=== PATIENT | female | born 1940 | race Caucasian/White ===

== ENCOUNTER 2017-01-07 15:11 | Inpatient (IN) | payer MEDICARE, OTHER ==
[2017-01-07] MEDS ORDERED: IOPAMIDOL 370 (76%) IV.SOLN 150 ML IV ONE (15:12)
[2017-01-07 16:26] LABS: ABSOLUTE NEUTROPHIL COUNT 1.1 K/mm3 (1.8-7.7); EOS # 0.1 (0.0-0.5); EOS % 0.3 % (0.9-2.9); HEMATOCRIT 26.3 % (37.0-47.0); HEMOGLOBIN 8.2 gm/l (12.0-16.0); IMM NEUT% 0.1 % (0-1); LYMPH % 16.9 % (15-45); MEAN CELL VOLUME 98.9 fl (81.0-99.0); MEAN CORPUSCULAR HEMOGLOBIN 30.8 pg (27.0-31.0); MEAN CORPUSCULAR HGB CONC 31.2 g/dl (33.0-37.0); MEAN PLATELET VOLUME 10.4 fl (7.4-10.4); MONO # 18.3 (0.0-0.8); MONO % 78.1 % (4-12); NEUT % 4.6 % (43-75); PLATELET COUNT 95 K/mm3 (130-400); RED CELL DISTRIBUTION WIDTH 21.3 % (11.5-14.5)
[2017-01-07 16:41] LABS: ALB/GLOB RATIO 1.2 (>1.0); ALBUMIN 3.5 gm/dL (3.5-5.7); CALCIUM 8.8 mg/dL (8.6-10.3); D-DIMER 1.54 mg/L FEU (0.20-0.50); INR 1.2; PROTHROMBIN TIME 12.7 SECONDS (9.3-11.4)
--- NOTE | 2017-01-07 16:45 | RAD ---
CHEST - 2 VIEWS COMPARISON: None. HISTORY: Shortness of breath and cough since 12/31/2016 FINDINGS: Views: Frontal and lateral chest Lungs: Increased interstitial markings bilaterally. Heart and vessels: Cardiomegaly. Trachea and bronchi: Normal Mediastinum and corie: Normal Costophrenic sulci: Normal Chest wall and bones: Normal. Upper abdomen: Normal. IMPRESSION: Mild pulmonary edema with cardiomegaly and increased interstitial markings. No focal infiltrate.
[2017-01-07 16:54] LABS: ANISOCYTOSIS 2+; ATYPICAL LYMPHOCYTE 1 %; BAND 0 % (0-10); BASOPHIL 1 % (0-1); EOSINOPHIL 0 % (1-3); HYPOCHROMIA 2+; LYMPHOCYTE 12 % (15-45); MONOCYTE 75 % (4-12); NEUTROPHILS 11 % (43-75); ORDER PATH REVIEW YES; PLATELET ESTIMATE DECREASED (NORMAL); TOTAL CELLS COUNTED 100
--- NOTE | 2017-01-07 17:46 | CT ---
INDICATION: Shortness of breath COMPARISON: Chest x-ray earlier on the same day TECHNIQUE: Helical scan mode CT of the Thorax with 2 mm collimated images were obtained after uneventful intravenous contrast administration of 80 of Isovue-370. Sagittal and coronal reformations with high resolution lung algorithm images were also created at this time. Maximal intensity projection images and 3-D volumetric sequences were created at a separate, dedicated workstation. DLP: 746.8 FINDINGS: There are no pulmonary arterial filling defects. Mild breathing motion artifact limits assessment. Patchy areas of groundglass and consolidative density are present. Compressive atelectasis is noted at the bilateral base though underlying pneumonia cannot be excluded. Multifocal areas of nodular density are also present though this may relate to the scattered patchy areas of consolidative density. Follow-up CT when the patient's acute process has completed to reassess would be recommended. Intralobular septal thickening is present predominantly at the lung apices compatible with heart failure Mild right greater than left effusions. The central airways are widely patent. There is no axillary adenopathy. Periaortic node on image 22 measures 1.3 x 1 cm. Subcarinal node on image 38 measures 1.6 x 1.4 cm. Nodes are enlarged without respect histology. There may be a tiny pericardial effusion.. The heart and great vessels opacify normally. Left breast implant is identified. There may be mild cardiomegaly. Limited evaluation of the upper abdomen demonstrates no gross abnormalities. Review of bone windows demonstrates no osteoblastic or lytic lesions. IMPRESSION: 1. Negative for pulmonary embolism. 2. Bilateral effusions with associated compressive atelectasis. Underlying pneumonia cannot be excluded. Intralobular septal thickening is present worrisome for interstitial edema. Patchy areas of groundglass and consolidative density are present which could relate to areas of airspace edema though pneumonia is on the differential. 3. Nodular areas are present throughout the chest though this could relate to the patient's airspace disease. Follow-up CT when the patient's acute status has completed would be recommended to reassess for pulmonary nodules. 4. Adenopathy without respect histology in the mediastinum. 5. Other incidental findings as above. Findings were called to Dr. Greenberg at approximately 1741 hours on 01/07/2017.
[2017-01-07] MEDS ORDERED: FUROSEMIDE 40 MG/4 ML VIAL ONE (17:52)
[2017-01-07 17:54] LABS: PH,URINE 6.5 (5.0-8.0); URINE BILIRUBIN NEGATIVE (NEGATIVE); URINE BLOOD NEGATIVE (NEGATIVE); URINE GLUCOSE (UA) NEGATIVE (NEGATIVE); URINE LEUKOCYTE ESTERASE TRACE (NEGATIVE); URINE NITRITE NEGATIVE (NEGATIVE); URINE PROTEIN TRACE (NEGATIVE); URINE UROBILINOGEN NORMAL (0-1 mg/dl)
[2017-01-07 17:56] LABS: URINE APPEARANCE CLEAR; URINE COLOR YELLOW
[2017-01-07 18:17] LABS: URINE EPITHELIAL CELLS 0-2 /hpf; URINE RBC 0 /hpf
[2017-01-07 18:18] LABS: URINE BACTERIA RARE
[2017-01-07] MEDS ORDERED: MENTHOL/CETYLPYRD 1 EACH LOZENGE PO PRN (22:50)
[2017-01-07] MEDS ORDERED: ACETAMINOPHEN 325 MG TABLET PO PRN (22:50)
[2017-01-07] MEDS ORDERED: MAGNESIUM HYDROXIDE 30 ML UDCUP PO PRN (22:50)
[2017-01-07] MEDS ORDERED: SODIUM CHLORIDE 0.9% 100 ML IV PRN (22:50)
[2017-01-07] MEDS ORDERED: BISACODYL 5 MG TABLET.EC PO PRN (22:50)
[2017-01-07] MEDS ORDERED: BLISTEX LIPSTICK 1 EACH TP PRN (22:50)
[2017-01-07] MEDS ORDERED: BISACODYL 10 MG SUP PR PRN (22:50)
[2017-01-07] MEDS ORDERED: FUROSEMIDE 20 MG/2 ML VIAL IV ONE (22:50)
[2017-01-07] MEDS ORDERED: MELATONIN 3 MG TABLET PO PRN (22:57)
[2017-01-07] MEDS ORDERED: NITROGLYCERIN 0.4 MG/TAB.SUBL BOT SL PRN (22:57)
[2017-01-07] MEDS ORDERED: PUMP TUBING ONE (23:12)
[2017-01-07] MEDS ORDERED: CEFTRIAXONE 1 GRAM DUPLEX 50 ML IV ONE (23:14)
[2017-01-07] MEDS: CEFTRIAXONE 1 GRAM DUPLEX 1 G in Premix (D5W) 50 ml 1 EACH IV SCH (23:21)
[2017-01-07] MEDS ORDERED: ALBUTEROL SULFATE MDI 60 PUFFS/INHALER IH PRN (23:33)
[2017-01-07] MEDS: ENOXAPARIN SODIUM 40 MG/0.4 ML SYRINGE SUB-Q SCH (23:42)
[2017-01-07] MEDS: AMIODARONE HCL 200 MG TABLET PO SCH (23:42)
[2017-01-07] MEDS: AMITRIPTYLINE HCL 25 MG TABLET PO SCH (23:43)
[2017-01-08 05:49] LABS: ABSOLUTE NEUTROPHIL COUNT 1.2 K/mm3 (1.8-7.7); EOS # 0.1 (0.0-0.5); EOS % 0.3 % (0.9-2.9); HEMATOCRIT 27.6 % (37.0-47.0); HEMOGLOBIN 8.8 gm/l (12.0-16.0); IMM NEUT% 0.1 % (0-1); LYMPH # 3.7 (1.0-4.8); LYMPH % 13.3 % (15-45); MEAN CELL VOLUME 95.8 fl (81.0-99.0); MEAN CORPUSCULAR HEMOGLOBIN 30.6 pg (27.0-31.0); MEAN CORPUSCULAR HGB CONC 31.9 g/dl (33.0-37.0); MEAN PLATELET VOLUME 9.3 fl (7.4-10.4); MONO # 22.7 (0.0-0.8); MONO % 82.1 % (4-12); NEUT % 4.2 % (43-75); PLATELET COUNT 97 K/mm3 (130-400); RED CELL DISTRIBUTION WIDTH 21.1 % (11.5-14.5)
[2017-01-08 05:57] LABS: CALCIUM 8.7 mg/dL (8.6-10.3); MAGNESIUM 1.4 mg/dL (1.9-2.7)
[2017-01-08] MEDS ORDERED: MAGNESIUM SULFATE 2 G/50 ML 2 G in Premix (Water) 50 ml 1 EACH IV ONE (06:12)
[2017-01-08] MEDS ORDERED: MAGNESIUM SULFATE 1 G/100 ML 1 G in PREMIX BAG 1 EACH IV SCH (06:15)
[2017-01-08] MEDS ORDERED: MAGNESIUM SULFATE 1 G/100 ML 100 ML IV ONE ×2 (06:25→07:24)
[2017-01-08] MEDS: MAGNESIUM SULFATE 1 G/100 ML 1 G in PREMIX BAG 1 EACH IV SCH ×2 (06:37→07:27)
[2017-01-08 07:33] LABS: ANISOCYTOSIS 2+; BAND 0 % (0-10); BASOPHIL 0 % (0-1); EOSINOPHIL 1 % (1-3); LYMPHOCYTE 91 % (15-45); MONOCYTE 0 % (4-12); NEUTROPHILS 8 % (43-75); PLATELET ESTIMATE DECREASED (NORMAL); TOTAL CELLS COUNTED 100
[2017-01-08] MEDS ORDERED: POTASSIUM CHLORIDE 20 MEQ TAB.PRT.SR PO SCH (09:00)
[2017-01-08] MEDS: FUROSEMIDE 20 MG/2 ML VIAL IV SCH ×2 (09:01→16:24)
[2017-01-08] MEDS: DOCUSATE SODIUM 100 MG CAPSULE PO SCH ×2 (09:01→21:38)
[2017-01-08] MEDS: AMIODARONE HCL 200 MG TABLET PO SCH ×2 (09:01→21:38)
[2017-01-08] MEDS: LOSARTAN POTASSIUM 50 MG TABLET PO SCH (09:01)
[2017-01-08] MEDS: CARVEDILOL 12.5 MG TABLET PO SCH ×2 (09:01→21:38)
[2017-01-08] MEDS: PANTOPRAZOLE 40 MG TABLET DR PO SCH (09:01)
[2017-01-08] MEDS: PRAVASTATIN SODIUM 40 MG TABLET PO SCH (09:01)
[2017-01-08] MEDS: CLOPIDOGREL BISULFATE 75 MG TABLET PO SCH (09:02)
[2017-01-08] MEDS: ASPIRIN (ENTERIC COATED) 81 MG TABLET.EC PO SCH (09:02)
--- NOTE | 2017-01-08 10:59 | PDOC43 ---
- Subjective Chief Complaint: Dyspnea Patient reports having some stomach upset, attributes to eating breakfast after not eating much for the last couple days. Not short of breath. Some abdominal discomfort. Reports didn't sleep well, thinks the room was too warm. Reports having some palpitations when she got up, telemetry showed 5 beats of wide complex tachycardia, o/w NSR - Objective Vital Signs Temperature 98.5 F 01/08/17 07:32 Pulse Rate 67 01/08/17 09:08 Respiratory Rate 18 01/08/17 07:32 Blood Pressure 127/65 01/08/17 09:08 O2 Saturation by Pulse Oximetry 98 01/08/17 07:32 Oxygen Delivery Method Room Air Oxygen Flow Rate 0 Vital Signs Last 12 Hours Temp Pulse Resp BP Pulse Ox 01/08/17 09:08 67 127/65 01/08/17 07:32 98.5 F 82 18 127/61 98 01/08/17 04:36 18 01/08/17 03:05 99.6 F 81 18 127/62 93 01/08/17 01:48 98.7 F 80 18 132/62 96 01/07/17 22:50 98.9 F 81 18 135/60 94 01/07/17 22:47 26 Intake and Output 01/06/17 01/07/17 01/08/17 23:59 23:59 23:59 Intake Total 426 Output Total 1875 Balance -1449 General: Alert, Other (seems mildly irritated.) HEENT: Atraumatic Lungs: Clear to Auscultation Bilaterally, Normal Air Movement Cardiovascular: Regular Rate and Rhythm, Murmur (murmur noted earlier less noticeable now) Abdomen: Soft, Tenderness (mild, nonfocal. No R/G. Mild distention), Normal Bowel Sounds Extremities: No Edema, No Tenderness Skin: Normal Color Psych/Mental Status: Other (memory seems diminished.) Laboratory 01/08/17 05:15 01/08/17 05:15 01/08/17 05:15 RBC 2.88 L MCHC 31.9 L RDW 21.1 H Estimated GFR 48 L Magnesium 1.4 L Current Medications: Current meds reviewed in EMR. Active Medications Acetaminophen (Tylenol) 650 mg PO Q6H PRN PRN Reason: Pain or Temperature > 100.5 F Albuterol Sulfate (Ventolin Hfa Mdi) 2 puffs IH Q6H PRN PRN Reason: Wheezing or Dyspnea Amiodarone HCl (Cordarone) 200 mg PO BID [facility] Last Admin: 01/08/17 09:01 Dose: 200 mg Amitriptyline HCl (Elavil) 25 mg PO BEDTIME [facility] Last Admin: 01/07/17 23:43 Dose: Not Given Aspirin (Ecotrin) 81 mg PO DAILY [facility] Last Admin: 01/08/17 09:02 Dose: 81 mg Benzocaine/Menthol (Cepacol) 1 each PO PRN PRN PRN Reason: Sore Throat Bisacodyl (Dulcolax) 10 mg WA DAILY PRN PRN Reason: Constipation Bisacodyl (Dulcolax) 5 mg PO DAILY PRN PRN Reason: Constipation Carvedilol (Coreg) 12.5 mg PO BID [facility] Last Admin: 01/08/17 09:01 Dose: 12.5 mg Clopidogrel Bisulfate (Plavix) 75 mg PO DAILY [facility] Last Admin: 01/08/17 09:02 Dose: 75 mg Docusate Sodium (Colace) 100 mg PO BID [facility] Last Admin: 01/08/17 09:01 Dose: 100 mg Enoxaparin Sodium (Lovenox) 40 mg SUB-Q Q24H [facility] Last Admin: 01/07/17 23:42 Dose: 40 mg Furosemide (Lasix) 20 mg IV [id number] [facility] Last Admin: 01/08/17 09:01 Dose: 20 mg Gabapentin (Neurontin) 600 mg PO BEDTIME [facility] Sodium Chloride (Sodium Chloride 0.9%) 100 mls @ 25 mls/hr IV PRN PRN PRN Reason: Flush Ceftriaxone Sodium/Dextrose 1 (g/ Premix (D5W) 50 ml) 50 mls @ 100 mls/hr IV Q24H [facility] Last Admin: 01/07/17 23:21 Dose: 100 mls/hr Losartan Potassium (Cozaar) 25 mg PO DAILY [facility] Last Admin: 01/08/17 09:01 Dose: 25 mg Magnesium Hydroxide (Milk Of Magnesia) 30 ml PO DAILY PRN PRN Reason: Constipation Melatonin (Melatonin) 3 mg PO BEDTIME PRN PRN Reason: Insomnia Nitroglycerin (Nitrostat) 0.4 mg SL Q5M PRN PRN Reason: Chest Pain Pantoprazole Sodium (Protonix) 40 mg PO DAILY [facility] Last Admin: 01/08/17 09:01 Dose: 40 mg Petrolatum/Paraffin/Mineral Oil (Blistex) 1 each TP PRN PRN PRN Reason: Dry and/or chapped lips Potassium Chloride (K-Dur) 20 meq PO DAILY [facility] Last Admin: 01/08/17 09:02 Dose: 20 meq Pravastatin Sodium (Pravachol) 40 mg PO DAILY [facility] Last Admin: 01/08/17 09:01 Dose: 40 mg Sodium Chloride (Normal Saline 10ml Flush) 10 - 50 ml IV PRN PRN PRN Reason: IV Flush Last Admin: 01/08/17 09:01 Dose: 10 ml Sodium Chloride (Normal Saline 10ml Flush) 10 ml IV Q8HR [facility] Last Admin: 01/08/17 08:00 Dose: 10 ml - Problems: Assessment/Plan (1) Acute on chronic congestive heart failure Qualifiers: Congestive heart failure type: systolic Qualifier Code: (I50.23) Acute on chronic systolic (congestive) heart failure Status: ChronicAssessment/ Plan: Etiology to be determined, but consider ischemic cardiomyopathy and/or complication of chemotherapy Given Lasix, good urine output. Echo 05/11/13: LVEF 35%, impaired LV relaxation, apical posterior and inferior akinesis, PA max 40 mmHg, reace MR, trace TR, Tr WA, no effusion Echo November 2016, reported to have EF 40-45%; prior hx of LAD occlusion Awaiting echo today, and continue with Lasix 20 IV BID, carvedilol, losartan, pravastatin, aspirin. 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 WBC improved from chemo. (3) UTI (urinary tract infection) Qualifiers: Urinary tract infection type: site unspecified Hematuria presence: without hematuria Qualifier Code: (N39.0) Urinary tract infection, site not specified Status: AcuteAssessment/Plan: Culture pending (at [facility]). Started on Rocephin 01/07. (4) Hypomagnesemia Status: AcuteAssessment/Plan: On IV replacement. (5) Atrial fibrillation Qualifiers: Atrial fibrillation type: paroxysmal Qualifier Code: (I48.0) Paroxysmal atrial fibrillation Status: ChronicAssessment/Plan: paroxysmal, currently in NSR Dr Fraire reports a hx of poorly tolerated atrial fib with RVR. Started on amiodarone, and appears to have maintained NSR, outside of a short run of WCT. VTE Prophylaxis: enoxaparin Disposition: Anticipate return to home, but waiting to assess today's echo . Plan PT/OT eval
--- NOTE | 2017-01-08 11:04 | HP ---
Madai Grier CHIEF COMPLAINT: Dyspnea. 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 She is not sure what medicines she has been taking for this. Yesterday she had been feeling more poorly over the previous 1 to 2 weeks with dyspnea and had been noted to have a urinary tract infection manifested by some back pain. She was given some antibiotics there, but is not sure which. Call to [facility] does not have a culture result yet at this time. They were discharged from [place] [facility] and she and her daughter expressed frustration that they feel like their concerns were not addressed. She has had dyspnea for the last one or two weeks. She wonders if this might be leukemia related. She has not had similar history of shortness of breath. She is not sure if she has had fevers or chills. She notes occasional cough which can be productive, sometimes a little bit yellow. She has no known history of lung disease. She does have a history of coronary artery disease and has had multiple stents in the past and has seen Dr. Cloud for this. She notes that she would have shortness of breath just getting commode, but a month could even mow her lawn. She has had two episodes with marked chest tightness associated with a rapid heart rhythm and has actually received defibrillation for this. She reports two episodes in the last couple of weeks and had actually seen Dr. Cloud later. Patient's daughter had complained of cough and metallic taste, but did not feel like this question was answered for them. She recalls having some sensation of palpitations which was relieved by sitting in the chair. She is reported to have some degree of reduced ejection fraction, but patient is not sure when this was or how severe it was. She has had this back pain attributed to kidneys. She has been treating this with message vibration and has been particularly noted over the last five days. She is not sure about fevers or chills. Denies dysuria, but has had some frequency, but she attributes this to receiving Lasix in the emergency department today. She has had some severe fatigue since the chemo started six weeks ago and has had three treatments, but recalls she needed a transfusion one time and overall has not felt well. PAST MEDICAL HISTORY: Cardiac: She has had a history of multiple stents starting at least three years ago from Dr. Cloud. She has a reported history of some decreased cardiac function possibly a reduced ejection fraction although, she cannot tell me how bad. She has had hairy cell leukemia times 21 years. 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 PAST SURGICAL HISTORY: She had a hysterectomy for uterine cancer, breast cancer with left mastectomy and reconstruction, previous appendectomy. ALLERGIES: She has no known drug allergies. MEDICATIONS: Taken from a list provided from [facility] shows: 1. Albuterol 2 puffs inhaled every 6 hours as needed. 2. Amiodarone 200 mg by mouth twice daily. 3. Amitriptyline 25 mg at bedtime. 4. Vitamin C 500 mg daily. 5. Aspirin 81 mg daily. 6. Carvedilol 12.5 mg by mouth twice daily. 7. Clopidogrel 75 mg daily. 8. Vitamin B12 2000 mcg by mouth daily. 9. Famotidine 10 mg by mouth daily. 10. Gabapentin 600 mg by mouth at bedtime. 11. Hydrochlorothiazide 25 mg by mouth daily. 12. Losartan 25 mg by mouth daily. 13. Melatonin 3 mg at bedtime. 14. Nitroglycerin 0.4 mg sublingually every 5 minutes as needed. 15. Omeprazole 20 mg by mouth daily. 16. Potassium chloride 20 mEq by mouth daily. 17. Pravastatin 40 mg daily. 18. Turmeric 500 mg by mouth daily. 19. Preservision areds 2 one by mouth daily. 20. Vitamin D3 1000 units daily. SOCIAL HISTORY: She is retired. 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 She is and has two kids, one of her daughters is a BSN with [employer]. She quit smoking 20 years ago. She reports less than five drinks per month. She does have a dog. She lives in a manufactured [place]. FAMILY HISTORY: Father at 79 of diabetes. Mom at 92 of cholecystitis and she had a history of hypertension. REVIEW OF SYSTEMS: Eyes: She has glasses. Ears are okay. Nose is okay. Mouth is okay, but dry. Teeth: She has dentures. Neck is okay. Breathing, has had difficulties recently. She has had a little bit of yellow sputum, does not recall a significant history of this. She describes having cardioversion and thought she may have had atrial fibrillation. She states that it would be okay to give her additional cardioversions if needed. Stomach has been okay, no nausea. no vomiting, no diarrhea. No urinary symptoms other than the back pain she had mentioned. No constipation. No diarrhea. Arms and legs, she suffers from neuropathy. She has had no seizure or strokes, but notes she has poor memory attributed to her chemotherapy. Skin: She reports has been older in the last six months. She does not wish to have CRP, but would accept resuscitation with defibrillation or chemicals. PHYSICAL EXAMINATION: GENERAL: Nontoxic female. She is alert, but is only a fair historian. Her daughter helps some. VITAL SIGNS: Respirations 18, pulse 81, 94% saturation on room air, blood pressure 135/60, temperature 98.9. HEENT: Head is normocephalic, atraumatic. Eyes are unremarkable. No icterus is noted. Ears are unremarkable. Nose is normal. Mouth with dentures, but no oral lesions identified. NECK: Difficult to assess for JVD, but not seen currently. LUNGS: Some crackles noted at the bases right greater than left with slight wheeze noted on expiration. HEART: Regular rate and rhythm with soft systolic murmur versus S3 sound. ABDOMEN: Soft, nontender, nondistended, well healed scar on the midline lower abdomen. No rebound, no guarding. She has no CVA tenderness to percussion. GENITOURINARY: Deferred. Palpation over the bladder does cause some discomfort and need to urinate. EXTREMITIES: Arms are grossly unremarkable. Minimal bruising noted. Legs without edema. Pulses are good throughout all extremities. NEUROLOGICAL: Orientation, she has some difficulty with this with guessing November and 2016, but takes awhile to think of this. No focal deficits although, patient has difficulty with recall. LABORATORY: White count 23.5, hemoglobin 8.2, platelets 95, absolute neutrophil count is 1.1, INR 1.2, D-dimer 1.54. Sodium 135, potassium 4.0, chloride 103, CO2 24, BUN 18, creatinine 0.9, glucose 96, calcium 8.8, troponin 0.02, BNP is greater than 1250. Albumin 3.5, globulin 3.0, AST 13, alk phos 74, ALT 8. Urinalysis 10-20 white cells. DIAGNOSTICS: Chest x-ray mild pulmonary edema, cardiomegaly, no focal infection noted. CTA negative for pulmonary embolism, bilateral effusions are noted, some compressive atelectasis, edema versus pneumonia, nodular areas suggested some adenopathy, left breast implant. ASSESSMENT AND PLAN: 1. Dyspnea suspect due to congestive heart failure. Patient does have what sounds like known systolic congestive heart failure presumed due to cardiomyopathy although, chemotherapy over the years may have been a factor as well. She does not have an acutely elevated troponin. Plan the use of Lasix tonight. Get echocardiogram and get outside records and consider review with Dr. Cloud particularly if he wishes to have any further evaluation. Daughter does mention that psychology tech had told them previously that she would likely not be able to have any additional stents. 2. Urinary tract infection with suspected pyelonephritis. May be partially treated from yesterday at the emergency department. We will be treating with Jose M and inquired with [facility] about urinary culture, they will send us a copy, but as of now it is only just being set up. 3. Hairy cell leukemia with previous treatment not tolerated well. Patient not wishing to continue at this time. 4. History of breast cancer resolved. 5. History of uterine cancer resolved. 6. History of dysrhythmia suspected atrial fibrillation with recent cardioversion noted. Will check a magnesium and check a TSH and maintain on telemetry. She would accept defibrillation, but does not wish to have chest compressions. 7. Anemia. Patient with anemia and mild thrombocytopenia both suspected related as complications of her hairy cell leukemia and or chemotherapy. She does have a relatively low absolute neutrophil count at 1.1 despite having a total white count of 23.5. 8. Venous thrombosis prophylaxis. Anticipate use of enoxaparin. 9. Code status, limited defibrillation okay, but does not wish for chest compressions, but would accept medication for cardioversion or other treatments. JOB: [id number] CC: Dr. Marlow at [facility] Dr. Arlene Cloud, psychology tech in [place]
[2017-01-08] MEDS ORDERED: Magnesium Oxide 400 MG TABLET PO SCH (11:15)
[2017-01-08] MEDS: Magnesium Oxide 400 MG TABLET PO SCH ×2 (11:43→17:29)
[2017-01-08] MEDS: POTASSIUM CHLORIDE 20 MEQ TAB.PRT.SR PO SCH ×2 (11:43→21:39)
[2017-01-08] MEDS ORDERED: ONDANSETRON 4 MG ODT TAB PO PRN (12:24)
[2017-01-08] MEDS ORDERED: ONDANSETRON 4 MG ODT TAB ONE (12:28)
[2017-01-08] MEDS ORDERED: DILTIAZEM HCL 5 MG/ML 5ML VIAL IV ONE (13:01)
[2017-01-08 17:43] VITALS: BMI 31.7
[2017-01-08] MEDS: AMITRIPTYLINE HCL 25 MG TABLET PO SCH (21:38)
[2017-01-08] MEDS: GABAPENTIN 600 MG TABLET PO SCH (21:39)
[2017-01-09] MEDS ORDERED: SODIUM CHLORIDE 0.9% 250 ML IV ONE (00:19)
[2017-01-09] MEDS: CEFTRIAXONE 1 GRAM DUPLEX 1 G in Premix (D5W) 50 ml 1 EACH IV SCH (00:28)
[2017-01-09] MEDS: ENOXAPARIN SODIUM 40 MG/0.4 ML SYRINGE SUB-Q SCH (00:28)
[2017-01-09] MEDS ORDERED: SODIUM CHLORIDE 0.9% 250 ML IV SCH (00:30)
[2017-01-09 06:39] LABS: EOS % 0.2 % (0.9-2.9); HEMATOCRIT 25.8 % (37.0-47.0); HEMOGLOBIN 8.1 gm/l (12.0-16.0); IMM NEUT% 0.1 % (0-1); LYMPH # 4.3 (1.0-4.8); LYMPH % 17.6 % (15-45); MEAN CELL VOLUME 98.1 fl (81.0-99.0); MEAN CORPUSCULAR HEMOGLOBIN 30.8 pg (27.0-31.0); MEAN CORPUSCULAR HGB CONC 31.4 g/dl (33.0-37.0); MEAN PLATELET VOLUME 10.1 fl (7.4-10.4); NEUT % 4.2 % (43-75); PLATELET COUNT 91 K/mm3 (130-400); RED CELL DISTRIBUTION WIDTH 21.1 % (11.5-14.5)
[2017-01-09 06:42] LABS: MONO % 77.9 % (4-12)
[2017-01-09 07:01] LABS: CALCIUM 8.3 mg/dL (8.6-10.3); MAGNESIUM 2.1 mg/dL (1.9-2.7)
[2017-01-09] MEDS: AMIODARONE HCL 200 MG TABLET PO SCH ×2 (09:12→21:18)
[2017-01-09] MEDS: DOCUSATE SODIUM 100 MG CAPSULE PO SCH ×2 (09:12→21:57)
[2017-01-09] MEDS: ASPIRIN (ENTERIC COATED) 81 MG TABLET.EC PO SCH (09:12)
[2017-01-09] MEDS: POTASSIUM CHLORIDE 20 MEQ TAB.PRT.SR PO SCH (09:13)
[2017-01-09] MEDS: CLOPIDOGREL BISULFATE 75 MG TABLET PO SCH (09:14)
[2017-01-09] MEDS: PRAVASTATIN SODIUM 40 MG TABLET PO SCH (09:14)
[2017-01-09] MEDS: FUROSEMIDE 20 MG/2 ML VIAL IV SCH (09:14)
[2017-01-09] MEDS: PANTOPRAZOLE 40 MG TABLET DR PO SCH (09:15)
[2017-01-09] MEDS: Magnesium Oxide 400 MG TABLET PO SCH ×2 (09:16→18:10)
[2017-01-09] MEDS ORDERED: LOSARTAN POTASSIUM 50 MG TABLET PO SCH (10:13)
[2017-01-09] MEDS ORDERED: CARVEDILOL 12.5 MG TABLET PO SCH (10:13)
[2017-01-09] MEDS: LOSARTAN POTASSIUM 50 MG TABLET PO SCH (10:58)
[2017-01-09] MEDS: CARVEDILOL 12.5 MG TABLET PO SCH (10:58)
[2017-01-09] MEDS ORDERED: SODIUM CHLORIDE 0.9% 500 ML IV PRN (12:12)
[2017-01-09] MEDS ORDERED: FUROSEMIDE 20 MG/2 ML VIAL IV ONE ×3 (12:12→18:05)
--- NOTE | 2017-01-09 12:23 | PDOC43 ---
- Subjective Chief Complaint: Dyspnea Subjective: Reports Shortness of Breath (improving but present with exertion), Reports Other (having some orthostatic dizziness) - Objective Vital Signs Temperature 98.8 F 01/09/17 03:35 Pulse Rate 79 01/09/17 10:45 Respiratory Rate 18 01/09/17 08:20 Blood Pressure 103/76 01/09/17 09:09 O2 Saturation by Pulse Oximetry 93 01/09/17 10:45 Oxygen Delivery Method Room Air Oxygen Flow Rate 0 Intake and Output 01/08/17 01/09/17 01/10/17 06:59 06:59 06:59 Intake Total 220 2086 Output Total 1875 1225 Balance -1655 861 General: Alert, Oriented x3, Cooperative, No Acute Distress HEENT: Mucous membr. moist/pink Lungs: Clear to Auscultation Bilaterally Cardiovascular: Regular Rate and Rhythm Abdomen: Soft, Normal Bowel Sounds, Non-Distended, No Tenderness Extremities: No Edema Laboratory 01/09/17 05:48 01/09/17 05:48 01/09/17 05:48 RBC 2.63 L MCHC 31.4 L RDW 21.1 H Estimated GFR 40 L Calcium 8.3 L Current Medications: Current meds reviewed in EMR. - Problems: Assessment/Plan (1) UTI (urinary tract infection) Qualifiers: Urinary tract infection type: site unspecified Hematuria presence: without hematuria Qualifier Code: (N39.0) Urinary tract infection, site not specified Status: AcuteAssessment/Plan: Culture grew E. Coli sens to cephalosporins (at [place]). Started on Rocephin . will switch to Cefdinir on discharge (2) Hypomagnesemia Status: AcuteAssessment/Plan: Given IV replacement. - resolved (3) Acute on chronic congestive heart failure Qualifiers: Congestive heart failure type: systolic Qualifier Code: (I50.23) Acute on chronic systolic (congestive) heart failure Status: ChronicAssessment/ Plan: Due to ischemic cardiomyopathy and/or complication of chemotherapy with exacerbation likely due to new onset a. fib and tachycardia(resolved with Amiodarone) Given Lasix, good urine output. Echo 05/11/13: LVEF 35%, impaired LV relaxation, apical posterior and inferior akinesis, PA max 40 mmHg, reace MR, trace TR, Tr HI, no effusion Echo November 2016, reported to have EF 40-45%; prior hx of LAD occlusion Current ECHO unchanged from baseline as above, continue with Lasix 20 IV BID, pravastatin, aspirin but holding carvedilol, losartan due to low BP. (4) Atrial fibrillation Qualifiers: Atrial fibrillation type: paroxysmal Qualifier Code: (I48.0) Paroxysmal atrial fibrillation Status: ChronicAssessment/Plan: paroxysmal, currently in NSR Dr Fraire reports a hx of poorly tolerated atrial fib with RVR. 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 WBC and platelet counts improved from chemo(has thrombocytopenia and leukocytosis due to leukemia). 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
[2017-01-09] MEDS ORDERED: BLOOD Y PLUMSET W/CASSETTE ONE ×2 (14:28→20:51)
[2017-01-09] MEDS ORDERED: SODIUM CHLORIDE 0.9% 500 ML ONE ×2 (14:28→20:51)
[2017-01-09] MEDS: AMITRIPTYLINE HCL 25 MG TABLET PO SCH (21:17)
[2017-01-09] MEDS: GABAPENTIN 600 MG TABLET PO SCH (21:17)
[2017-01-09] MEDS ORDERED: SODIUM CHLORIDE 0.9% FLUSH 10 ML ONE (23:09)
[2017-01-09] MEDS ORDERED: IV START KIT ONE (23:09)
[2017-01-09] MEDS ORDERED: PUMP TUBING ONE (23:45)
[2017-01-10] MEDS: CEFTRIAXONE 1 GRAM DUPLEX 1 G in Premix (D5W) 50 ml 1 EACH IV SCH (00:15)
[2017-01-10] MEDS ORDERED: CARVEDILOL 6.25 MG TABLET PO SCH (07:00)
[2017-01-10 07:38] LABS: ABSOLUTE NEUTROPHIL COUNT 1.1 K/mm3 (1.8-7.7); EOS # 0.1 (0.0-0.5); EOS % 0.4 % (0.9-2.9); HEMATOCRIT 29.6 % (37.0-47.0); HEMOGLOBIN 9.7 gm/l (12.0-16.0); IMM NEUT% 0.2 % (0-1); LYMPH # 2.8 (1.0-4.8); LYMPH % 13.6 % (15-45); MEAN CELL VOLUME 94.9 fl (81.0-99.0); MEAN CORPUSCULAR HEMOGLOBIN 31.1 pg (27.0-31.0); MEAN CORPUSCULAR HGB CONC 32.8 g/dl (33.0-37.0); MEAN PLATELET VOLUME 9.8 fl (7.4-10.4); MONO # 16.8 (0.0-0.8); MONO % 80.6 % (4-12); NEUT % 5.2 % (43-75); PLATELET COUNT 85 K/mm3 (130-400); RED CELL DISTRIBUTION WIDTH 20.3 % (11.5-14.5)
[2017-01-10 07:57] LABS: CALCIUM 8.3 mg/dL (8.6-10.3)
[2017-01-10] MEDS ORDERED: FUROSEMIDE 20 MG TABLET PO SCH (09:00)
[2017-01-10 09:02] LABS: BAND 2 % (0-10); BASOPHIL 0 % (0-1); EOSINOPHIL 0 % (1-3); LYMPHOCYTE 10 % (15-45); MONOCYTE 80 % (4-12); NEUTROPHILS 8 % (43-75); TOTAL CELLS COUNTED 100
[2017-01-10 09:03] LABS: ANISOCYTOSIS 2+; NUCLEATED RED BLOOD CELL 2 /100 WBC; OVALOCYTES 1+; PLATELET ESTIMATE DECREASED (NORMAL); POIKILOCYTOSIS 1+
[2017-01-10] MEDS: DOCUSATE SODIUM 100 MG CAPSULE PO SCH (09:56)
[2017-01-10] MEDS: ASPIRIN (ENTERIC COATED) 81 MG TABLET.EC PO SCH (09:57)
[2017-01-10] MEDS: AMIODARONE HCL 200 MG TABLET PO SCH (09:57)
[2017-01-10] MEDS: Magnesium Oxide 400 MG TABLET PO SCH (09:58)
[2017-01-10] MEDS: CLOPIDOGREL BISULFATE 75 MG TABLET PO SCH (09:58)
[2017-01-10] MEDS: PANTOPRAZOLE 40 MG TABLET DR PO SCH (09:59)
[2017-01-10] MEDS: PRAVASTATIN SODIUM 40 MG TABLET PO SCH (09:59)
[2017-01-10 11:39] VITALS: BP 112/52
--- NOTE | 2017-01-10 11:46 | PDOC5 ---
ADMIT DATE: 01/07/17 DISCHARGE DATE: 01/10/17 ADMISSION DIAGNOSES: Diastolic CHF Discharge Diagnoses: Diastolic CHF Atrial Fibrillation UTI 2nd to e Coli CAD with multiple stents Hairy Cell Leukemia Neuropathy Anemia, received 2UPRBC Hypomagnesia PROCEDURES PERFORMED THIS HOSPITALIZATION: None CONSULTATIONS: None HOSPITAL COURSE: This is a 76 year old female who presented for worsening dyspnea. 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 With the chemotherapy she has had severe fatigue with dyspnea. She was seen in [place] ED and noted to have a UTI and provided with antibiotics. As her symptoms did not improve, she presented to our facility for further evaluation. In the ED, her BNP was markedly elevated, >1250, and chest x-ray noted pulmonary edema. She was admitted for diuresis and ongoing care of her UTI. Urine Culture results from [place] showed nance sensitive e coli and she was treated with rocephin over the hospital stay, 4 days and is being discharged with amoxicillin. Overnight of the first hospital night she was diuresed with over 3 liters of urine output and improvement in her dyspnea. With diuresis her dyspnea improved. She was ambulatory without shortness of breath. Her chronic medical conditions were managed per her usual regime. She had a decrease in her hemoglobin to 8.1 and was transfused with 2 UPRBC with a rebound to 9.7. Her blood pressure remained low-normal in the 100's and her medications were held. She converted to a sinus rhythm after a dose of cardizem. She will be discharged with close monitoring of her blood pressure and restarting her medications as her BP rebounds. - Exam Vital Signs Temperature 98.8 F 01/10/17 08:52 Pulse Rate 71 01/10/17 08:52 Respiratory Rate 19 01/10/17 08:52 Blood Pressure 102/43 01/10/17 08:52 O2 Saturation by Pulse Oximetry 92 01/10/17 08:52 Oxygen Delivery Method Room Air Oxygen Flow Rate 0 General: Alert, Oriented x3, Cooperative, Other (morbidly obese), No Acute Distress HEENT: Atraumatic, PERRLA, EOMI, Mucous membr. moist/pink Lungs: Clear to Auscultation Bilaterally, Normal Air Movement, Other (no crackle or wheeze), No Diminished at Bases Cardiovascular: Regular Rate and Rhythm, Normal S1, Normal S2 Abdomen: Soft, Mild Distention, No Rigid, No Tenderness, No Rebounding Extremities: No Cyanosis, No Edema, No Tenderness Peripheral Pulses: Radial (L): 1+, Radial (R): 1+, Posterior Tibialis (L): 1+, Posterior Tibialis (R): 1+ Skin: Warm, Dry Neurological: Normal Speech Psych/Mental Status: Normal Mood - Results Laboratory 01/10/17 06:54 01/10/17 06:54 01/10/17 01/09/17 06:54 12:36 RBC 3.12 L MCH 31.1 H MCHC 32.8 L RDW 20.3 H Estimated GFR 54 L Calcium 8.3 L Crossmatch See Detail Laboratory Tests 01/07/17 01/07/17 01/08/17 16:10 16:15 05:15 WBC 23.5 H 27.6 H Hgb 8.2 L 8.8 L Magnesium 1.5 L 1.4 L B-Natriuretic Peptide > 1250 H 01/09/17 01/10/17 05:48 06:54 WBC 24.4 H 20.8 H Hgb 8.1 L 9.7 L Magnesium 2.1 B-Natriuretic Peptide BC with NGTD Imaging Results: CTA PE: Negative for PE. B/L effusions with associated compressive atelecatsis. Intralobular septal thickening is present worrisome for interstitial edema. Patchy areas of groundglass and consolidative density. Nodular areas. Adenopathy in mediastinum CXR: mild pulmonary edema with cardiomegaly and increased interstitial markings. No focal infiltrate Echocardiogram: LV dysfunction with global hypokinesis, EF 40-45%, atrial fibrillation - Problems:Assessment/Plan (1) UTI (urinary tract infection) Qualifiers: Urinary tract infection type: site unspecified Hematuria presence: without hematuria Qualifier Code: (N39.0) Urinary tract infection, site not specified Status: AcuteAssessment/Plan: Culture grew E. Coli sens to cephalosporins (at [place]). Started on Rocephin . will switch to Cefdinir on discharge (2) Hypomagnesemia Status: AcuteAssessment/Plan: Given IV replacement. - resolved (3) Acute on chronic congestive heart failure Qualifiers: Congestive heart failure type: systolic Qualifier Code: (I50.23) Acute on chronic systolic (congestive) heart failure Status: ChronicAssessment/ Plan: Due to ischemic cardiomyopathy and/or complication of chemotherapy with exacerbation likely due to new onset a. fib and tachycardia(resolved with Amiodarone) Given Lasix, good urine output. Echo 05/11/13: LVEF 35%, impaired LV relaxation, apical posterior and inferior akinesis, PA max 40 mmHg, reace MR, trace TR, Tr KS, no effusion Echo November 2016, reported to have EF 40-45%; prior hx of LAD occlusion Current ECHO unchanged from baseline as above, continue with Lasix 20 IV BID, pravastatin, aspirin but holding carvedilol, losartan due to low BP. (4) Atrial fibrillation Qualifiers: Atrial fibrillation type: paroxysmal Qualifier Code: (I48.0) Paroxysmal atrial fibrillation Status: ChronicAssessment/Plan: paroxysmal, currently in [facility] Dr Fraire reports a hx of poorly tolerated atrial fib with RVR. Started on amiodarone last week but had run of tachycardia caused by atrial fibrillation yesterday converted after single dose of cardizem (5) Hairy cell leukemia Qualifiers: Leukemia Active/Remission status: relapsed Qualifier Code: (C91.42) Hairy cell leukemia, in relapse Status: ChronicAssessment/Plan: Pt not wishing to do further chemo, has done three courses from Dr Jacobs in [place], but pt reported feeling poorly afterward. WBC and platelet counts improved from chemo(has thrombocytopenia and leukocytosis due to leukemia). Aplastic anemia also due to leukemia and HGB dropping despite diuresis likely due to bone marrow suppression and concerned that this is contributing to orthostasis and dyspnea - transfuse 2 units of PRBCs today (6) Anemia, chronic disease Status: AcuteAssessment/Plan: received 2U PRBC 01/09/2017. Hgb stable overnight, asymptomatic - Disposition: Disposition: Anticipate return to home tomorrow - Discharge Plan Additional Instructions: Follow-up with cardiology for review of your medications. Monitor your blood pressure. When reach 120/80 restart losartan/cozaar Prescriptions: Amoxicillin 500 mg PO TID #21 tablet Follow-Up: Zachery Marlow MD [Family Provider] - 01/13/17 6:00 pm Juarez Fraire MD [Referring] - In 7-10 days (Their office will call you with an appt and a time for next week.) Condition: Stable Disposition: Home
== END 2017-01-10 12:23 | disposition home or self-care (01) | DRG 292 ==
LOC: ED 15:11 → MS 21:07
PROVIDERS: ADMIT Family Medicine; ATTEND Family Medicine
PROC: 30233N1 Transfusion of Nonautologous Red Blood Cells into Peripheral Vein, Percutaneous Approach (ICD-10-PCS; principal; 2017-01-07)
DX: I50.43 Acute on chronic combined systolic (congestive) and diastolic (congestive) heart failure (principal); N39.0 Urinary tract infection, site not specified; C91.40 Hairy cell leukemia not having achieved remission; I48.91 Unspecified atrial fibrillation; B96.20 Unspecified Escherichia coli [E. coli] as the cause of diseases classified elsewhere; I25.10 Atherosclerotic heart disease of native coronary artery without angina pectoris; G62.9 Polyneuropathy, unspecified; D64.9 Anemia, unspecified; E83.42 Hypomagnesemia